=== PATIENT | female | born 1975 | race Caucasian/White ===

== ENCOUNTER 2021-02-09 08:28 | Outpatient (CLI) | payer OTHER, SELFPAY ==
--- NOTE | ~2021-02-09 | XR_ITS ---
XR_CERV2-3V_CR DATE: 02/09/2021 09:00 INDICATION: Neck, thoracic and low back pain TECHNIQUE: AP, open-mouth and lateral views COMPARISON: 08/26/2014 cervical spine FINDINGS: There is straightening of cervical spine which may be due to muscle spasm. C1 and C2 are normally aligned and the odontoid process is intact. No fracture or dislocation or lock ed facet or prevertebral soft tissue swelling. There is moderate degenerative disc disease and spurring at C6-7. IMPRESSION: Moderate degenerative disc disease at C6-7 Straightening of the cervical spine Reviewed, dictated and finalized at [facility]. Reviewed, dictated and finalized at location B. AND NUTRITION SERVICES SUPERVISOR
--- NOTE | ~2021-02-09 | XR_ITS ---
XR lumbar spine 2-3V DATE: 02/09/2021 09:00 INDICATION: Low back pain TECHNIQUE: AP, lateral, coned lateral lumbosacral views COMPARISON: None FINDINGS: Bilateral L1 small ribs, resulting in 13 pairs of ribs. There is minimal levoscoliosis of the lumbar spine. No fracture or bone destruction or spondylolisthesis. The lumbar pedicles are intact. Lumbar and uppe r sacral interspaces appear well preserved. The sacroiliac joints appear normal. Status post bilateral tubal ligation. IMPRESSION: Minimal levoscoliosis Reviewed, dictated and finalized at location B. REGISTER OPERATOR IMPRESSION: Minimal levoscoliosis
--- NOTE | ~2021-02-09 | XR_ITS ---
XR thoracic spine 3V DATE: 02/09/2021 09:00 INDICATION: Thoracic back pain TECHNIQUE: AP, lateral, swimmer views COMPARISON: None FINDINGS: Incidentally noted 13 pairs of ribs. There is minimal dextroscoliosis of the upper thoracic spine. There is mild loss of height and anterior wedging of T7 consistent with compression fracture, likely chronic. There is no associated paraspinal soft tissue thickening. No other fracture or any dislocation or bone destruction of the thoracic spine is evident. The thorac ic pedicles are intact. IMPRESSION: Probable chronic mild anterior wedge compression fracture deformity of T7 Minimal dextro scoliosis of upper thoracic spine Reviewed, dictated and finalized at location B. H RIDER
== END 2021-02-09 08:29 | disposition home or self-care (01) ==
LOC: ANHIMG 08:34
PROVIDERS: PCP Family Medicine; Visit Provider Family Medicine
DX: M47.812 Spondylosis without myelopathy or radiculopathy, cervical region (principal); M41.9 Scoliosis, unspecified
CPT/HCPCS: 72040; 72072; 72100

== ENCOUNTER → 2021-04-20 13:50 | Outpatient (CLI) | payer OTHER, SELFPAY ==
--- NOTE | ~2021-04-20 | US_ITS ---
Repeat US thyroid INDICATION: Thyroid goiter TECHNIQUE: Real-time sonographic images of the thyroid gland were obtained. COMPARISON: No prior studies FINDINGS: The right thyroid lobe measures 4.1 x 1.4 x 1.4 cm. The left thyroid lobe measures 4.2 x 1 x 1.4 cm. There is normal echotexture and echogenicity throughout the thyroid gland. No discrete nod ules identified. Normal vascular flow is present. IMPRESSION: 1. Normal thyroid without discrete nodule or abnormal vascularity. Reviewed, dictated and finalized at location A. ELER CHANGER
--- NOTE | ~2021-04-20 | US_ITS ---
EXAMINATION: US carotid duplex BI DATE: 04/20/2021 14:31 INDICATION: Intermittent confusion and dizziness TECHNIQUE: Grayscale, color Doppler, and pulsed Doppler images of the cervical carotid arteries were obtained. The degree of vessel stenosis is placed in one of the following categories: normal, <50%, 5 0-69%, >=70% but less than near-occlusion, near-occlusion, or total occlusion. Note that percent sten osis relative to normal distal artery lumen diameter is indirectly measured from velocity measurement s as described by Jeffrey, et al. Radiology 2003; 229:340-346. Notes: Normal: Peak systolic velocity <125 centimeters/sec and no plaque <50%. Peak systolic velocity <125 ( EDV <40; ICA/CCA PSV ratio <2.0; used these factors only a tandem lesions or low cardiac output or co ntralateral disease) 50-69 %: PSV 125-230 (EDV 40-100; ratio 2-4) >= 70% but less than near occlusion: PSV greater than 230 (EDV > 100; ratio> 4.0) Near Occlusion: PSV that is variable; markedly narrowed lumen Occlusion: Absent flow on color/spectral Doppler and no lumen on muller scale. COMPARISON: None. FINDINGS: RIGHT: The right common carotid artery (CCA) peak systolic velocity (PSV) is 89 cm/s. The right internal car otid artery (ICA) PSV is 111 cm/s. The right ICA end-diastolic velocity (EDV) is 46 cm/s. The right I CA/CCA PSV ratio is 1.2. The external carotid artery (ECA) PSV is 125 cm/s. There is antegrade flow i n the right vertebral artery. LEFT: The left CCA PSV is 75 cm/s. The left ICA PSV is 112 cm/s. The left ICA EDV is 44 cm/s. The left ICA/ CCA PSV ratio is 1.5. The ECA PSV is 101 cm/s. There is antegrade flow in the left vertebral artery. IMPRESSION: 1. Less than 50% stenosis in the right internal carotid artery by sonographic criteria. 2. Less than 50% stenosis in the left internal carotid artery by sonographic criteria. Reviewed, dictated and finalized at location A. TERIA CLERK IMPRESSION: 1. Less than 50% stenosis in the right internal carotid artery by sonographic rebecca francois. 2. Less than 50% stenosis in the left internal carotid artery by sonographic mireya beatty.
== END ==
PROVIDERS: PCP Family Medicine; Visit Provider Family Medicine
DX: E04.9 Nontoxic goiter, unspecified (principal); R41.0 Disorientation, unspecified; R42 Dizziness and giddiness; I65.23 Occlusion and stenosis of bilateral carotid arteries
CPT/HCPCS: 76536; 93880

== ENCOUNTER → 2021-05-31 07:57 | Outpatient (CLI) | payer OTHER, SELFPAY ==
--- NOTE | ~2021-05-31 | XR_ITS ---
EXAMINATION: XR thoracic spine 3V EXAM DATE: 05/31/2021 09:36 INDICATION: Thoracic back pain. TECHNIQUE: Frontal and lateral projections of the thoracic spine as well as lateral swimmers projecti on of the upper thoracic spine for interpretation. Comparison is made to prior examination from 02/09. FINDINGS: There is minimal mid thoracic levoscoliosis. The vertebral bodies are aligned in the AP di mension. There is mild anterior wedging T7 vertebral body, chronic and unchanged. The vertebral body and disc heights are otherwise well maintained. There are no acute fractures identified. Paraspinal soft tissue is unremarkable. There are no bony erosions identified. IMPRESSION: 1. Mild chronic appearing midthoracic compression fracture. 2. Minimal mid lumbar levoscoliosis. Reviewed, dictated and finalized at location B.
--- NOTE | ~2021-05-31 | MR_ITS ---
EXAMINATION: MR cervical spine wo con EXAM DATE: 05/31/2021 08:37 INDICATION: Neck pain, occipital headaches. Bilateral arm pain/numbness. TECHNIQUE: Multi-sequential, multiplanar MR images of the cervical spine were obtained without contra st. Axial T2, axial T2 MERGE sequence. Sagittal T1, T2, T2 fat saturation images also obtained. Th ere is no prior study for comparison. FINDINGS: There is mild to moderate disc disease at C6-7. The vertebral body and disc heights are ot herwise well maintained. The vertebral bodies are aligned in the AP dimension. The spinal cord signal intensity and intrinsic morphology is normal. Cervicomedullary junction is normal in appearance. The re are no suspicious marrow signal abnormalities. Level by level evaluation: C2-C3: Disc does not extend beyond the endplate margin. Uncovertebral joint arthropathy: None. Facet joint arthropathy: None. Neural foraminal stenosis: No stenosis. Central canal stenosis: No stenosis. C3-C4: Disc does not extend beyond the endplate margin. Uncovertebral joint arthropathy: None. Facet joint arthropathy: Mild bilateral. Neural foraminal stenosis: No stenosis. Central canal stenosis: No stenosis. C4-C5: Disc does not extend beyond the endplate margin. Uncovertebral joint arthropathy: None. Facet joint arthropathy: Mild to moderate. Neural foraminal stenosis: No stenosis. Central canal stenosis: No stenosis. C5-C6: There is a minimal diffuse disc bulge. Uncovertebral joint arthropathy: Mild bilateral. Facet joint arthropathy: Mild to moderate right, mild left. Neural foraminal stenosis: No stenosis. Central canal stenosis: No stenosis. C6-C7: There is a mild diffuse disc bulge. Uncovertebral joint arthropathy: Mild bilateral. Facet joint arthropathy: Mild bilateral. Neural foraminal stenosis: No stenosis. Central canal stenosis: No stenosis. C7-T1: Disc does not extend beyond the endplate margin. Uncovertebral joint arthropathy: None. Facet joint arthropathy: Mild right. Neural foraminal stenosis: No stenosis. Central canal stenosis: No stenosis. IMPRESSION: Mild cervical spondylosis. No stenosis. Reviewed, dictated and finalized at location B.
== END ==
PROVIDERS: PCP Family Medicine; Visit Provider Family Medicine
DX: M54.6 Pain in thoracic spine (principal); M47.892 Other spondylosis, cervical region
CPT/HCPCS: 72072; 72141

== ENCOUNTER 2021-07-12 14:31 | Emergency (ER) | payer OTHER, SELFPAY ==
[2021-07-12 14:39] VITALS: BP 148/93; PULSE 94; RESP 20; TEMP 36.6; O2SAT 99
--- NOTE | 2021-07-12 15:03 | ED.URI ---
HPI - URI/Sore Throat General Chief Complaint: Upper Respiratory Infection Stated Complaint: Congestion,Cough,Sore Throat Time Seen by Provider: 07/12/21 15:03 Source: patient and RN notes reviewed Mode of arrival: ambulatory Limitations: no limitations History of Present Illness HPI Narrative: 45-year-old female presented for complaint of sinus pressure, congestion, headache, low fever, sore throat and fatigue for about 3 days. She denies associated shortness of breath, wheezing, nausea, vomiting. She has been taking [id number] medication for symptoms without relief. She has been boosted for COVID and vaccinated for flu. She denies sick contacts. MD elicited complaint: cough Related Data Home Medications Medication Instructions Recorded Confirmed No Home Medications 07/12/21 07/12/21 Allergies Allergy/AdvReac Type Severity Reaction Status Date / Time Sulfa (Sulfonamide Allergy Unknown Hives Verified 07/12/21 14:42 Antibiotics) CHLORAPREP Allergy Rash Uncoded 07/12/21 14:42 Review of Systems Review of Systems: CONSTITUTIONAL: Endorses malaise, chills, sweats, fever EYES: Denies visual changes, redness, or discharge ENT: Reports rhinorrhea, congestion, sinus pain CARDIOVASCULAR: Denies chest pain, palpitations, edema RESPIRATORY: Reports cough, post nasal drainage. Denies dyspnea GASTROINTESTINAL: Denies abdominal pain, nausea, vomiting, diarrhea SKIN: Denies rash or itching MUSCULOSKELETAL: denies myalgia NEUROLOGIC: reports headache PMFSH Family History Family History Mother Hypertension Patient's mother is Family history of malignant neoplasm Family history of chronic obstructive pulmonary disease Father Cerebrovascular accident Patient's father is Hypertension Family history of malignant neoplasm Family history of Parkinson's disease Family history of heart disease in male family member before age 55 Sibling Hypertension Other Diabetes mellitus Family history of arthritis Family history of gout Family history of malignant neoplasm of breast Social History Social History Smoking status: Never smoker Alcohol intake: current Exam Narrative: GENERAL: Ill-appearing, nontoxic HEAD: Normocephalic EYES: conjunctivae clear ENT: Mucous membranes moist. TM pearly muller with normal light reflex bilaterally; no tragal tenderness. Oropharynx erythematous without lesions or exudate, no drooling, no hoarseness, no trismus, uvula midline. NECK: Supple. No lymphadenopathy CHEST: Clear to auscultation, breath sounds equal. No wheezing, rhonchi, rales, or stridor. No respiratory distress, speaks in full sentences. HEART: Regular rate and rhythm. No murmur heard. SKIN: Warm, dry, no rash. NEURO: Alert and oriented x3. PSYCH: Normal mood and affect Course Course Emergency Course: Patient is aware of diagnosis, understands and agrees to treatment plan. Anticipatory guidance given. Patient agrees to follow-up as directed and is aware of reasons to seek care at the emergency department. Portions of this record may have been created with voice recognition software Level of Care: Express Care Visit Vital Signs Vital signs: Vital Signs Temperature 97.8 F 07/12/21 14:39 Pulse Rate 94 07/12/21 14:39 Respiratory Rate 20 07/12/21 14:39 Blood Pressure 148/93 H 07/12/21 14:39 Pulse Oximetry 99 07/12/21 14:39 Oxygen Delivery Room Air 07/12/21 14:39 Temperature 97.8 F 07/12/21 14:39 Pulse Rate 94 07/12/21 14:39 Respiratory Rate 20 07/12/21 14:39 Blood Pressure 148/93 H 07/12/21 14:39 Pulse Oximetry 99 07/12/21 14:39 Oxygen Delivery Room Air 07/12/21 14:39 reviewed MDM - URI/Sore Throat MDM Narrative Medical decision making narrative: covid strep and flu neg. advised supportive treatments. She is approp
== END 2021-07-12 15:53 | disposition home or self-care (01) ==
PROVIDERS: Emergency Provider Nurse Practitioner Family; PCP Family Medicine
DX: J06.9 Acute upper respiratory infection, unspecified (principal); Z20.822 Contact with and (suspected) exposure to COVID-19
CPT/HCPCS: 87081; 87426; 87804; 87880; 99213; C9803; G0463